=== PATIENT | female | born 1975 | race Caucasian/White ===

== ENCOUNTER 2021-12-25 05:53 | Day surgery (SDC) | payer OTHER ==
[~2021-12-25] VITALS: Ht 165.1 cm; Wt 102.1 kg
[~2021-12-25 05:53] MED LIST: AKTOB5 ML; ATORVASTATIN CA10 MG PO; CEFADROXIL500 MG PO; FLOVENT 220MCG7.9 GM IH; HYDROCHLOROTHIA25 MG PO; NABUMETONE750 MG PO; PROVENTIL S1 ML/5 MG IH; SINGULAIR 10MG10 MG PO; TUSSIONEX PENNKI5 ML PO; ZITHROMAX500 MG PO
== END 2021-12-25 14:10 | disposition home or self-care (01) ==
LOC: CIR.AMB 05:53
PROVIDERS: ATTEND Obstetrics & Gynecology
DX: N84.0 Polyp of corpus uteri (principal); Z20.822 Contact with and (suspected) exposure to COVID-19; Z30.432 Encounter for removal of intrauterine contraceptive device; J45.909 Unspecified asthma, uncomplicated; I10 Essential (primary) hypertension; N83.8 Other noninflammatory disorders of ovary, fallopian tube and broad ligament

== ENCOUNTER 2023-01-09 09:11 | Emergency (ER) | payer OTHER ==
[~2023-01-09] VITALS: Ht 165.1 cm; Wt 102.1 kg
[2023-01-09] MEDS ORDERED: DICLOFENAC SODI75 MG PO (10:02)
== END 2023-01-09 10:14 | disposition home or self-care (01) ==
LOC: ER 09:11
DX: M25.511 Pain in right shoulder (principal); M75.81 Other shoulder lesions, right shoulder; Z88.8 Allergy status to other drugs, medicaments and biological substances

== ENCOUNTER 2023-06-19 12:29 | Emergency (ER) | payer OTHER ==
[~2023-06-19] VITALS: Ht 165.1 cm; Wt 100.2 kg
[~2023-06-19 12:29] MED LIST changes: +DICLOFENAC SODI75 MG PO
[2023-06-19] MEDS ORDERED: TUSNEL LIQUID178 ML PO (14:18)
[2023-06-19] MEDS ORDERED: BUDESONIDE0.5 MG/2 M IH (14:18)
[2023-06-19] MEDS ORDERED: MEDROLPACK PO (14:18)
[2023-06-19] MEDS ORDERED: ALBUTEROL2.5 MG/3 M IH (14:18)
== END 2023-06-19 14:53 | disposition home or self-care (01) ==
LOC: ER 12:30
DX: R06.02 Shortness of breath (principal); Z88.8 Allergy status to other drugs, medicaments and biological substances

== ENCOUNTER 2023-08-27 17:17 | Emergency (ER) | payer OTHER ==
[~2023-08-27] VITALS: Ht 165.1 cm; Wt 101.2 kg
[~2023-08-27 17:17] MED LIST changes: +ALBUTEROL2.5 MG/3 M IH; +BUDESONIDE0.5 MG/2 M IH; +MEDROLPACK PO; +TUSNEL LIQUID178 ML PO
[2023-08-27] MEDS ORDERED: KETOROLAC TROMETHAMINE 60 MG VIAL IM ONE (19:45)
[2023-08-27] MEDS ORDERED: DICLOFENAC SODI50 MG PO (21:36)
[2023-08-27] MEDS ORDERED: KETO10TA2 PO (21:36)
== END 2023-08-27 21:47 | disposition home or self-care (01) ==
LOC: ER 17:17
DX: M62.830 Muscle spasm of back (principal); M54.89 Other dorsalgia; Z88.8 Allergy status to other drugs, medicaments and biological substances; J45.909 Unspecified asthma, uncomplicated; I10 Essential (primary) hypertension; E78.49 Other hyperlipidemia
CPT/HCPCS: 96372; 99282; J1885

== ENCOUNTER 2023-09-22 11:48 | Emergency (ER) | payer OTHER ==
[~2023-09-22] VITALS: Ht 165.1 cm; Wt 102.1 kg
[~2023-09-22 11:48] MED LIST changes: +DICLOFENAC SODI50 MG PO; +KETO10TA2 PO
[2023-09-22] MEDS ORDERED: BUTALB/ACETAMINOPHEN/CAFFEINE 1 TAB TABLET PO ONE (16:45)
[2023-09-22 16:58] LABS: HEMATOCRIT 41.8 % (36.0-45.00); HEMOGLOBIN 13.9 g/dL (12.0-15.00); MEAN CELL VOLUME 80.4 fL (80.00-100.00); MEAN CORPUSCULAR HEMOGLOBIN 26.7 pg (27.00-32.0); MEAN CORPUSCULAR HGB CONC 33.2 g/dl (32.0-36.0); PLATELET COUNT 292 K/uL (150-450); RED CELL DISTRIBUTION WIDTH 15.7 % (11.5-14.5)
[2023-09-22 17:26] LABS: PH,URINE 5.5 (5.0-8.0); URINE APPEARANCE Cloudy; URINE BILIRRUBIN Negative (NEGATIVE); URINE BLOOD Negative; URINE COLOR Yellow; URINE GLUCOSE Negative (NEGATIVE); URINE LEUKOCYTE Moderate; URINE NITRATE Negative; URINE PROTEIN Negative (NEGATIVE); URINE UROBILINOGEN 0.2 E.U./dl
[2023-09-22 17:29] LABS: ALBUMIN 3.9 gm/dL (3.4-5.0); BILIRUBIN TOTAL 0.49 mg/dL (0.3-1.2); CALCIUM 9.6 mg/dL (8.5-10.1); CREATININE SERUM 0.84 mg/dL (0.55-1.02); GFR 72.36; GLOBULINA 3.9 G/DL (2.4-3.5); TOTAL PROTEIN 7.8 gm/dL (6.4-8.2)
[2023-09-22 17:30] LABS: URINE BACTERIA 3191.4 uL (0.0-1933); URINE EPITHELIAL CELLS 59.6 uL (0.0-38.8); URINE RBC 4.1 uL (0.0-20.8); URINE WBC 111.4 uL (0.0-23.2)
[2023-09-22 17:36] LABS: POTASSIUM 2.97 mEq/L (3.5-5.1)
[2023-09-22] MEDS ORDERED: POTASSIUM CHLORIDE 10 MEQ CAPSULE PO ONE (18:15)
== END 2023-09-22 18:54 | disposition home or self-care (01) ==
LOC: ER 11:48
PROVIDERS: Emergency Medicine
DX: E87.6 Hypokalemia (principal); N39.0 Urinary tract infection, site not specified; Z88.8 Allergy status to other drugs, medicaments and biological substances; J45.909 Unspecified asthma, uncomplicated; E78.00 Pure hypercholesterolemia, unspecified; I10 Essential (primary) hypertension; Z20.822 Contact with and (suspected) exposure to COVID-19